=== PATIENT | female | born 2000 | race Caucasian/White ===

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

== ENCOUNTER 2019-04-06 21:44 | Emergency (ER) | payer SELFPAY ==
[~2019-04-06] VITALS: Ht 162.6 cm; Wt 97.5 kg
[2019-04-06] MEDS ORDERED: ONDANSETRON HCL INJ 2MG/ML 2ML 2 MG/ML VIAL IV STA (22:34)
[2019-04-06] MEDS ORDERED: KETOROLAC TROMETHAMINE 30 MG/ML VIAL IV STA (22:34)
[2019-04-06] MEDS ORDERED: SODIUM CHLORIDE 0.9% 1000ML 1,000 ML IV SCH (22:45)
--- NOTE | 2019-04-07 00:31 | Diagnostic Imaging Report ---
EXAMINATION: Right upper quadrant ultrasound CLINICAL INDICATION: Right upper quadrant pain COMPARISON: None DISCUSSION: Transverse and longitudinal images of the right upper quadrant were obtained. The liver is normal in size measuring 12.9centimeters in length in the right midclavicular line and shows normal echogenicity. No focal masses are seen in the liver. There is no intrahepatic biliary dilatation. The common bile duct is normal in caliber and measures 0.4 cm. The main portal vein is normal in caliber and measures 1 cm with normal hepatopetal flow. The gallbladder is normal in appearance without stones, wall thickening or pericholecystic fluid. The sonographic Perry's sign is negative. Pancreas not well seen. The right kidney measures 9.9 centimeters in length. There is normal renal cortical echogenicity and no hydronephrosis, mass or shadowing calculi. The visualized portions of the great vessels are normal. No free fluid is seen. IMPRESSION: Normal right upper quadrant ultrasound. Signed by: Dr. Dario Meyers M.D. on 04/07/2019 12:28 AM
[2019-04-07] MEDS ORDERED: OMEPRAZOLE40 MG PO (00:41)
--- NOTE | 2019-04-07 01:30 | Diagnostic Imaging Report ---
EXAMINATION: CT of the abdomen and pelvis without contrast. TECHNIQUE: Helical CT images of the abdomen and pelvis were performed from the lung bases to the lesser trochanters. No intravenous contrast was given per renal stone protocol. Coronal and sagittal reformatted images were obtained.Dose modulation, iterative reconstruction, and/or weight based adjustment of the mA/kV was utilized to reduce the radiation dose to as low as reasonably achievable. COMPARISON: None. CLINICAL HISTORY:Abdominal pain, back pain DISCUSSION: ABSENCE OF INTRAVENOUS CONTRAST DECREASES SENSITIVITY FOR DETECTION OF FOCAL LESIONS AND VASCULAR PATHOLOGY. ABDOMEN/PELVIS: LOWER THORAX: Unremarkable. HEPATOBILIARY:No focal hepatic lesions. No biliary ductal dilation. The gallbladder is normal. SPLEEN: No splenomegaly. PANCREAS: No focal masses or ductal dilatation. ADRENALS: No adrenal nodules. KIDNEYS/URETERS: Punctate right renal calculus in the inferior pole. PELVIC ORGANS/BLADDER: The bladder is normal. PERITONEUM/RETROPERITONEUM: No free air or fluid. LYMPH NODES: No intra-abdominal,retroperitoneal, pelvic or inguinal lymphadenopathy. VESSELS: The celiac trunk,superior and inferior mesenteric and bilateral renal arteries are patent The portal, superior mesenteric and splenic veins are patent. GI TRACT: No distention or wall thickening. Appendix is normal. BONES AND SOFT TISSUES: No bony destructive lesions. No soft tissue abnormalities. IMPRESSION: No acute CT finding. Punctate right inferior pole renal calculus. Signed by: Dr. Dario Meyers M.D. on 04/07/2019 1:27 AM
== END 2019-04-07 02:45 | disposition home or self-care (01) ==
LOC: FSED 21:44
DX: R10.11 Right upper quadrant pain (principal); R10.13 Epigastric pain; R11.2 Nausea with vomiting, unspecified
CPT/HCPCS: 36415; 74176; 76705; 99284

== ENCOUNTER 2025-02-04 23:39 | Emergency (ER) | payer SELFPAY ==
[~2025-02-04] VITALS: Ht 160 cm; Wt 114.8 kg
[~2025-02-04 23:39] MED LIST: OMEPRAZOLE40 MG PO
[2025-02-04 23:55] VITALS: PULSE 86; RESP 18; TEMP 98.4
[2025-02-05] MEDS: TRAMADOL HCL 50 MG TAB PO ONE (00:15)
[2025-02-05] MEDS ORDERED: CYCLOBENZAPRINE5 MG PO (00:43)
[2025-02-05] MEDS ORDERED: PREDNISONE20 MG PO (00:51)
[2025-02-05 00:58] VITALS: BP 174/88; PULSE 56; RESP 18; TEMP 98.4; O2SAT 98
== END 2025-02-05 00:58 | disposition home or self-care (01) ==
LOC: FSED 23:46
DX: M25.512 Pain in left shoulder (principal); M77.8 Other enthesopathies, not elsewhere classified; F41.9 Anxiety disorder, unspecified; E28.2 Polycystic ovarian syndrome
CPT/HCPCS: 99283